=== PATIENT | female | born 1995 | race Hispanic/Latino ===

== ENCOUNTER 2017-11-23 15:29 | Outpatient (CLI) | payer OTHER | END 2017-11-23 15:30 | disposition home or self-care (01) | LOC: BICULT 15:29 | PROVIDERS: ATTEND Family Medicine | DX: Z34.02 Encounter for supervision of normal first pregnancy, second trimester (principal); Z3A.20 20 weeks gestation of pregnancy | CPT/HCPCS: 76805 ==

== ENCOUNTER 2018-04-04 09:27 | Outpatient (CLI) | payer OTHER | END 2018-04-04 09:28 | disposition home or self-care (01) | LOC: BICULT 09:27 | PROVIDERS: ATTEND Family Medicine | DX: O36.63X0 Maternal care for excessive fetal growth, third trimester, not applicable or unspecified (principal); Z3A.38 38 weeks gestation of pregnancy | CPT/HCPCS: 76816 ==

== ENCOUNTER 2018-04-12 05:33 | Inpatient (IN) | payer OTHER ==
[2018-04-12] MEDS ORDERED: Ketorolac Tromethamine 30 MG/ML VIAL ONE ×2 (12:59→14:37)
[2018-04-12] MEDS ORDERED: PHENYLEPHRINE-NS 100 MCG/ML 10 ML SYRINGE ONE ×2 (12:59→14:38)
[2018-04-12] MEDS ORDERED: Ondansetron HCl/PF 4 MG/2 ML Vial ONE ×2 (12:59→14:37)
[2018-04-12] MEDS: Lactated Ringer's 1,000 ML IV SCH ×2 (13:13→23:45)
[2018-04-12] MEDS ORDERED: Eucerin (Mineral Oil/Petrolatum,White) 30 gm Jar TOP PRN (13:33)
[2018-04-12] MEDS ORDERED: HYDROmorphone 2 MG/ML VIAL SLOW IVP PRN (13:33)
[2018-04-12] MEDS ORDERED: Promethazine HCl 25 MG/ML VIAL IM PRN ×3 (13:33→21:30)
[2018-04-12] MEDS ORDERED: Ondansetron HCl/PF 4 MG/2 ML Vial IVP PRN ×5 (13:33→21:30)
[2018-04-12] MEDS ORDERED: Promethazine HCl 25 MG SUPP PR PRN ×2 (13:33→21:30)
[2018-04-12] MEDS ORDERED: Naloxone HCl 0.4 mg/ml Vial IVP PRN ×4 (13:33→21:30)
[2018-04-12] MEDS ORDERED: Meperidine HCl/PF 25 MG/ML VIAL SLOW IVP PRN (13:33)
[2018-04-12] MEDS ORDERED: diphenhydrAMINE 50 MG/ML VIAL IVP PRN ×2 (13:33→21:30)
[2018-04-12] MEDS ORDERED: Naloxone HCl 0.4 mg/ml Vial IV PRN ×2 (13:33→21:30)
[2018-04-12] MEDS ORDERED: Acetaminophen 1,000 MG in Premix Bag 1 BAG IVPB PRN (13:34)
[2018-04-12] MEDS ORDERED: Ketorolac Tromethamine 30 MG/ML VIAL IVP SCH ×2 (13:45→18:00)
[2018-04-12] MEDS ORDERED: Communication Order-Pharmacy FS SCH ×2 (13:45→21:30)
[2018-04-12 14:04] VITALS: BMI 44.2
[2018-04-12] MEDS ORDERED: CEFAZOLIN/Water 2 GM/20 ML SYRINGE ONE (14:26)
[2018-04-12] MEDS ORDERED: Bicitra 30 ML UDCUP ONE (14:26)
[2018-04-12] MEDS ORDERED: Bicitra 30 ML UDCUP PO SCH (14:30)
[2018-04-12] MEDS ORDERED: CEFAZOLIN/Water 2 GM/20 ML SYRINGE SLOW IVP SCH (14:30)
[2018-04-12] MEDS ORDERED: Fentanyl 100 MCG/2 ML VIAL ONE (14:36)
[2018-04-12] MEDS ORDERED: Bupivacaine 0.75% W/DEXTROSE 8.25% 2 ML AMP ONE (14:37)
[2018-04-12] MEDS ORDERED: Oxytocin 10 UNITS/ML VIAL ONE ×2 (14:37→16:22)
[2018-04-12] MEDS ORDERED: Morphine PF 1 MG/ML SYR ONE (14:37)
[2018-04-12] MEDS ORDERED: Lidocaine 1% PF 5 ML VIAL ONE (14:39)
[2018-04-12 14:53] LABS: Hemoglobin 11.6 g/dL (12.0-16.0); Mean Corpuscular HGB CONC 32.8 g/dL (32.0-36.0); Mean Corpuscular Hemoglobin 26.8 pg (27.0-31.0); Mean Corpuscular Volume 81.7 fL (78.0-98.0); Platelet Count 202 thou/uL (130-400); RBC Distribution Width 13.5 % (11.5-14.5); Red Blood Cell (RBC) Count 4.32 mill/uL (4.20-5.40); White Blood Cell (WBC) Count 6.6 thou/uL (4.8-10.8)
[2018-04-12 15:31] LABS: HBSAg Index 0.23 S/CO (0-0.99); Hep B Surf Ag Non-Reactive S/CO (NonReactive); Syphilis Antibody Nonreactive (Nonreactive); Syphilis Antibody Index 0.04 S/CO (<1.00 Non-Reactive)
[2018-04-12] MEDS ORDERED: NS / Oxytocin 40 units/1000ml 1,000 ML ONE (16:47)
[2018-04-12] MEDS ORDERED: Acetaminophen 325 MG TAB PO PRN (18:48)
[2018-04-12] MEDS ORDERED: diphenhydrAMINE 25 MG CAP PO PRN (18:48)
[2018-04-12] MEDS ORDERED: Acetaminophen/Codeine 30-300mg Tablet PO PRN (18:48)
[2018-04-12] MEDS ORDERED: Simethicone Chewable 80 MG TAB PO PRN (18:48)
[2018-04-12] MEDS ORDERED: HYDROcodone/Acetaminophen 5/325 mg Tablet PO PRN (18:48)
[2018-04-12] MEDS ORDERED: Lanolin Ointment 7 GM TUBE TOP PRN (18:48)
[2018-04-12] MEDS ORDERED: Bisacodyl 10 MG SUPP PR PRN (18:48)
--- NOTE | 2018-04-12 21:00 | OP ---
DATE OF SURGERY: 04/12/2018 PREOPERATIVE DIAGNOSES: Term intrauterine with suspected macrosomia. POSTOPERATIVE DIAGNOSES: Term intrauterine , delivered via section with macrosomia . PROCEDURE PERFORMED: Primary low transverse section. SURGEON: Rowena Cartagena M.D. POUND ATTENDANT: Armando Lau M.D. ANESTHESIA: Spinal. COMPLICATIONS: No complications. PROCEDURE IN DETAIL: After adequate spinal anesthetic, the patient was placed in supine position. A wedge was placed under her right flank. Malhotra catheter was placed and the abdomen was prepped and d raped in the usual sterile technique. A Pfannenstiel incision was made in the inferior aspect of the abdomen. Subcutaneous tissue opened with sharp dissection. Peritoneum opened. Fascia opened with sharp dissection, peritoneum with sharp and blunt dissection. It was noted that the abdomen was fill ed with a gravid uterus. An Aleksey O retractor was placed and a low transverse incision was made on the uterus. Membranes were ruptured and clear fluid was encountered. A viable male was deliv ered from vertex presentation without difficulty. Infant breathed and cried spontaneously. After ap proximately 30 seconds, cord was clamped and cut and was handed to care of the neonatology [facility]. Cord blood was obtained and placenta was delivered manually. Ring forceps were used to grasp the edges of the hysterotomy and the hysterotomy was then closed in continuous fashion using 0 Monocryl suture. Hemostasis was adequate. Examination of the gutters revealed no further bleeding. Minimal clots, which were removed. The peritoneum was then closed in continuous fashion using 2-0 chromic an d the fascia was then closed in continuous fashion using 0 Vicryl. Sponge and instrument counts were correct. A 2-0 plain was then used to approximate the subcutaneous tissue and the skin was then kameron sed using venessa. The patient tolerated the procedure well to go to the recovery room in good condi tion. Noted, the baby is a viable male . Weight 10 pounds 13 ounces, Apgars 7 at 1 minute, 9 at 5 minutes, to the level 1 nursery in good condition. ESTIMATED BLOOD LOSS: Approximately 800 mL. Quantitative blood loss pending.
[2018-04-12] MEDS ORDERED: Hydrocerin (Eucerin) Cream 120 gm Jar TOP PRN (21:30)
[2018-04-12] MEDS ORDERED: Ketorolac Tromethamine 30 MG/ML VIAL IVP PRN (21:30)
--- NOTE | 2018-04-12 21:51 | OP ---
DATE OF ENCOUNTER: 04/12/2018 PROCEDURE PERFORMED: The patient is a 23-year-old female who underwent a primary for macro somia. Primary surgeon is Dr. Rowena Cartagena. 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 Please refer to her operative note for complete details.
[2018-04-12] MEDS ORDERED: Ibuprofen 800 MG TAB PO SCH (22:00)
[2018-04-12] MEDS: Ferrous Sulfate 325 MG TAB PO SCH (22:07)
[2018-04-12] MEDS: Docusate Calcium (SURFAK) 240 MG CAP PO SCH (22:07)
[2018-04-13 06:32] LABS: Hemoglobin 8.6 g/dL (12.0-16.0); Mean Corpuscular HGB CONC 32.6 g/dL (32.0-36.0); Mean Corpuscular Hemoglobin 26.6 pg (27.0-31.0); Mean Corpuscular Volume 81.7 fL (78.0-98.0); Mean Platelet Volume 10.5 fL (7.4-10.4); Platelet Count 141 thou/uL (130-400); RBC Distribution Width 13.5 % (11.5-14.5); Red Blood Cell (RBC) Count 3.22 mill/uL (4.20-5.40); White Blood Cell (WBC) Count 6.6 thou/uL (4.8-10.8)
[2018-04-13] MEDS ORDERED: Sodium Chloride 0.9% 10 ML ONE (06:34)
[2018-04-13] MEDS ORDERED: Acetaminophen/Codeine 30-300mg Tablet PO PRN (09:30)
[2018-04-13] MEDS: HYDROcodone/Acetaminophen 5/325 mg Tablet PO PRN ×2 (09:45→14:37)
[2018-04-13] MEDS: Ferrous Sulfate 325 MG TAB PO SCH ×2 (09:45→21:11)
[2018-04-13] MEDS: Prenatal Vitamin 1 TAB PO SCH (09:45)
[2018-04-13] MEDS: Docusate Calcium (SURFAK) 240 MG CAP PO SCH ×2 (09:45→21:11)
[2018-04-13] MEDS ORDERED: Adacel (T-DAP) 0.5 ML VIAL IM ONE (13:45)
[2018-04-13] MEDS ORDERED: Measles/Mumps/Rubella 10 MCG/0.5 ML VIAL SC ONE (13:45)
[2018-04-13] MEDS: Ibuprofen 800 MG TAB PO SCH ×2 (14:37→21:12)
[2018-04-14] MEDS: Ibuprofen 800 MG TAB PO SCH ×2 (05:34→13:58)
[2018-04-14] MEDS ORDERED: Ibuprofen 800 MG TAB PO SCH (06:00)
[2018-04-14] MEDS: Docusate Calcium (SURFAK) 240 MG CAP PO SCH (09:22)
[2018-04-14] MEDS: Prenatal Vitamin 1 TAB PO SCH (09:22)
[2018-04-14] MEDS: Ferrous Sulfate 325 MG TAB PO SCH (09:22)
[2018-04-14 11:27] VITALS: BP 115/71; TEMP 98
== END 2018-04-14 15:10 | disposition home or self-care (01) | DRG 766 ==
LOC: L&D 12:46 → 3SW 18:44
PROVIDERS: ADMIT Family Medicine; ATTEND Family Medicine
PROC: 10D00Z1 Extraction of Products of Conception, Low, Open Approach (ICD-10-PCS; principal; 2018-04-12)
DX: O36.63X0 Maternal care for excessive fetal growth, third trimester, not applicable or unspecified (principal); Z3A.39 39 weeks gestation of pregnancy; Z37.0 Single live birth
CPT/HCPCS: 36415; 51702; 85027; 86780; 86850; 86900; 86901; 87340; 90707; 90715; A4216; J1885; J2001; J2274; J2405; J2590; J3010; J3490

== ENCOUNTER 2020-04-05 08:06 | Emergency (ER) | payer OTHER, SELFPAY ==
[2020-04-05 08:47] LABS: Bilirubin Negative (Negative); Blood, Urine Negative (Negative); Clarity Clear (Clear); Glucose, Urine (Dipstick) Normal (Negative); Ketone, Urine Negative (Negative); Leukocyte Negative Leu/uL (Negative); Nitrite Negative (Negative); Protein, Urine (Dipstick) Negative (Neg-Trace); Urobilinogen Normal mg/dL (Less than 2); pH, Urine 6.5 (5.0-9.0)
[2020-04-05 08:52] LABS: Pregnancy Test - Urine (BHCG) Negative (Negative); Pregu Control Background? CLEAR/WHITE (CLR/WHITE); Pregu Control Bar Appear? YES (CONTROL BAR)
[2020-04-05 10:02] LABS: #Lymphocytes 1.3 thou/uL (1.20-3.40); #Monocytes 0.3 thou/uL (0.11-0.59); #Neutrophils 3.9 thou/uL (1.40-6.50); %Basophils 0.2 % (0.0-1.0); %Eosinophils 0.8 % (0.0-10.0); %Lymphocytes 23.6 % (21.0-51.0); %Monocytes 5.2 % (0.0-10.0); %Neutrophils 70.2 % (42.0-75.0); Hemoglobin 13.3 g/dL (12.0-16.0); Mean Corpuscular HGB CONC 32.4 g/dL (32.0-36.0); Mean Corpuscular Hemoglobin 29.5 pg (27.0-31.0); Mean Corpuscular Volume 91.2 fL (78.0-98.0); Mean Platelet Volume 11.5 fL (7.4-10.4); Platelet Count 161 thou/uL (130-400); RBC Distribution Width 12.7 % (11.5-14.5); Red Blood Cell (RBC) Count 4.51 mill/uL (4.20-5.40); White Blood Cell (WBC) Count 5.5 thou/uL (4.8-10.8)
[2020-04-05] MEDS ORDERED: Iopamidol-370 76% 500 ML 1 ML ONE (10:20)
[2020-04-05 10:24] LABS: ALT (SGPT) 23 U/L (8-55); AST (SGOT) 15 U/L (5-34); Albumin 4.3 g/dL (3.5-5.0); Alkaline Phosphatase 75 U/L (40-110); Anion Gap 13 mmol/L (10-20); BUN (Urea Nitrogen) 17 mg/dL (7.0-18.7); Bilirubin, Total 0.2 mg/dL (0.2-1.2); Calc. Creatinine Clearance 0 mL/min (70-130); Calcium 8.5 mg/dL (7.8-10.44); Carbon Dioxide 24 mmol/L (22-29); Chloride 109 mmol/L (98-107); Estimated GFR-MDRD Greater than 90; Globulin 2.6 g/dL (2.4-3.5); Glucose 94 mg/dL (70-105); Lipase 91 U/L (8-78); Potassium 4.5 mmol/L (3.5-5.1); Protein, Total 6.9 g/dL (6.0-8.3); Sodium 141 mmol/L (136-145)
--- NOTE | 2020-04-05 10:49 | ULT ---
Exam: Pelvic ultrasound HISTORY: Pelvic pain COMPARISON: None TECHNIQUE: Multiple grayscale and color Doppler images were obtained in a transabdominal and transvag inal pelvic ultrasound. Spectral analysis of the Doppler waveforms of the ovaries were performed. FINDINGS: CERVIX: Small nabothian cyst present. UTERUS: Mildly heterogeneous in appearance without focal mass. ENDOMETRIAL STRIPE: 11 mm which is within normal limits for a normal menstruating female patient. No fluid or fluid collection is seen in the endometrial canal. No free fluid is present. RIGHT OVARY: Normal flow, without focal mass. LEFT OVARY: Normal flow, without focal mass. IMPRESSION: Normal-appearing uterus and bilateral ovaries. Endometrial stripe measures 11 mm in thickness, and no fluid or fluid collection is seen in the endometrial canal.
--- NOTE | 2020-04-05 12:34 | CT ---
CT ABDOMEN AND PELVIS WITH IV CONTRAST 04/05/2020 CLINICAL INFORMATION: Abrupt onset of right lower quadrant abdominal pain and lower pelvic pain. COMPARISON: None. Technique: Multiple contiguous axial CT images are obtained through the abdomen and pelvis with IV contrast. Cor onal reformatted images are provided. FINDINGS: Lower Chest: Minimal atelectasis seen currently right lung base. Lung bases are otherwise clear. Vessels: Abdominal aorta is normal in caliber. Abdomen: Portal vein:Patent Gallbladder: Within normal limits for CT imaging. Liver: within normal limits. Spleen: within normal limits. Pancreas: within normal limits. Adrenals: within normal limits. Kidneys: within normal limits. Bowel: Normal caliber. Appendix: The appendix is visualized and normal in caliber. Peritoneum: No ascites or free air; no fluid collection. Mesentery and Retroperitoneum: No enlarged mesenteric or retroperitoneal lymph nodes. Abdominal Wall: within normal limits. Pelvis: Reproductive Organs: No pelvic masses. Bladder: within normal limits. Bones: No suspicious lytic or sclerotic osseous lesions. IMPRESSION: No acute findings in the abdomen or pelvis.
[2020-04-07 21:29] LABS: Chlamydia by PCR Not Detected (NotDetected); GC by PCR Not Detected (NotDetected)
== END 2020-04-05 13:13 | disposition home or self-care (01) ==
LOC: ERS 08:06
DX: R10.31 Right lower quadrant pain (principal)
CPT/HCPCS: 36415; 74177; 76856; 80053; 81003; 81025; 83605; 83690; 85025; 87480; 87491; 87510; 87591; 87660

== ENCOUNTER 2020-08-04 19:52 | Emergency (ER) | payer SELFPAY ==
[2020-08-06 08:18] LABS: SARS-CoV-2 PCR by NAA DETECTED (NotDetected)
== END 2020-08-04 20:40 | disposition home or self-care (01) ==
LOC: ERS 19:52
DX: U07.1 COVID-19 (principal)
CPT/HCPCS: 87635; 99283; U0003; U0005